=== PATIENT | male | born 1955 | race Caucasian/White ===

== ENCOUNTER 2016-07-12 00:42 | Day surgery (SDC) | payer OTHER ==
[~2016-07-12] VITALS: Ht 182.9 cm; Wt 87.5 kg
[2016-07-12] MEDS ORDERED: Sodium Chloride LOK Flush 10 mL Syringe IV PRN (06:00)
[2016-07-12] MEDS ORDERED: fentaNYL-PF 50 mCg/mL 2 mL Inj IVPUSH PRN (06:00)
[2016-07-12 11:40] VITALS: BP 134/74; PULSE 71; RESP 16; O2SAT 95
[2016-07-12] MEDS: 0.9% Sodium Chloride 1,000 ML IV SCH ×3 (11:46→12:46)
[2016-07-12 12:53] VITALS: BP 136/84; PULSE 64; RESP 14; O2SAT 94
[2016-07-12 13:02] VITALS: BP 109/70; PULSE 75; RESP 14; O2SAT 95
[2016-07-12 13:12] VITALS: BP 115/67; PULSE 70; RESP 14; O2SAT 95
[2016-07-12 13:22] VITALS: BP 142/76; PULSE 69; RESP 14; O2SAT 96
--- NOTE | 2016-07-13 07:20 | ENDO ---
[address] [address] ENDOSCOPY PROCEDURE PATIENT: MALLORY ANN : 1955 MR#: [id number] ADMIT: 07/12/2016 JOB ID: [id number] DATE: 07/12/2016 TYPE OF OPERATION: Colonoscopy with biopsy. PREOPERATIVE DIAGNOSIS(ES): Rectal bleeding. POSTOPERATIVE DIAGNOSIS(ES): Broad-based rectal mass was seen that appeared erythematous and hard on biopsy concerning for malignancy status post biopsy. ANESTHESIA: 1. Fentanyl 150 mcg. 2. Versed 7 mg IV administered. COMPLICATIONS: None. BLOOD LOSS: Minimal. DESCRIPTION OF PROCEDURE: After risks and benefits were explained to the patient, informed consent was obtained. After anesthesia administered, colonoscope was then inserted per rectum to the cecum. Mucosa carefully examined. Prep of the patient was excellent. After the procedure was done, the scope withdrawn and procedure terminated. FINDINGS: Upon inspection of the anus, no masses, hemorrhoids, ulcers or fissures that were seen. Throughout the entire examination, there was a large mass seen in the rectum just upon entry of the scope that was broad-based, erythematous and hard upon biopsy. Several biopsies were taken of this region concerning for malignancy. Retroflexion revealed the mass. No other masses or polyps were seen. IMPRESSIONS: A large rectal mass concerning for malignancy status post biopsy, most likely cause of rectal bleeding. RECOMMENDATIONS: 1. CT of chest, abdomen and pelvis with contrast. 2. General surgery consult. 3. Await biopsy results.
--- NOTE | 2016-07-15 10:41 | PATH ---
SURGICAL PATHOLOGY Attending Physician:Kevon Shen MD CASE STATUS: Signed Out PATIENT NAME: MALLORY NAN PID: [id number] : 1955 DATE COLLECTED:07/12/2016 20:42 SPECIMEN: Rectum, Biopsy CLINICAL HISTORY: 1). RECTAL BIOPSY FINAL DIAGNOSIS: 1.RECTAL BIOPSY: INVASIVE ADENOCARCINOMA, MODERATELY DIFFERENTIATED. ICD10 code C20 NOTE: As part of a routine quality control assistant, Dr. Nini Lan has also reviewed this case and agrees with the diagnosis. The results of this evaluation are telephoned to Dr. Kevon Shen at 0905 on 07/15/16. GROSS DESCRIPTION: The specimen is received in one formalin filled container labeled with the patient's name, sublabeled "rectal" and consists of multiple portions of tissue which aggregate to 0.4 x 0.4 x 0.2 CM. The specimen is entirely submitted in one cassette. 07/12/2016 [facility] MICRO DESCRIPTION: See diagnosis. ICD-9 CODES: CPT CODES: 1: 51570 Electronically Signed Out Ab Barba MD [facility] Pathology [facility] [address], [place] [address] Technical component performed at [facility], [address] [place] [address] Ave[address], [place], [address]
[2016-07-31] MEDS ORDERED: NO MEDS (13:01)
== END 2016-07-12 23:59 | disposition home or self-care (01) ==
LOC: END 00:42
PROVIDERS: ATTEND Internal Medicine Gastroenterology
DX: C20 Malignant neoplasm of rectum (principal); Z85.528 Personal history of other malignant neoplasm of kidney; F17.210 Nicotine dependence, cigarettes, uncomplicated
CPT/HCPCS: 45380; G0500; J7030

== ENCOUNTER → 2016-08-21 | Day surgery (SDC) | payer OTHER ==
[~2016-08-21] VITALS: Ht 182.9 cm; Wt 85.0 kg
[2016-08-21] VITALS (7 sets, daily range): BP systolic 125–144; BP diastolic 73–96; PULSE 44–68; RESP 12–17; O2SAT 94–100
[~2016-08-21] MED LIST: Bupivacaine-MPF 0.25%/EPI 30 mL Inj INFILTRATE ONE; Dexamethasone 4 mg/mL Inj IVPUSH PRN; Dexamethasone 4 mg/mL Inj ONE; EPHEDrine Sulfate 50 mg/mL Inj IVPUSH PRN; HYDROmorphone 1 mg/mL Inj IVPUSH PRN; LEVO750T39 PO; Lactated Ringer's 1,000 ML IV SCH; Lactated Ringer's 500 ML IV PRN; METR500T19 PO; MetoCLOpramide 5 mg/mL 2 mL Inj IVPUSH PRN; NO MEDS; OXYC5CAP4 PO; Ondansetron 2 mg/mL 2 mL Inj IVPUSH PRN; Ondansetron 2 mg/mL 2 mL Inj ONE; Phenylephrine 10,000 mCg/mL Inj IVPUSH PRN; Propofol 10,000 mCg/mL 20 mL Inj ONE; fentaNYL-PF 50 mCg/mL 2 mL Inj ONE; oxyCODONE-Acetamin 5-325 mg Tablet PO PRN
[2016-08-21] MEDS: Lactated Ringer's 1,000 ML IV SCH ×2 (15:03→16:09)
--- NOTE | 2016-08-21 15:50 | PCM.HPANE ---
Patient Data Date of Service: Aug 21, 2016 (5109) Surgeon Admitting Provider: Attending Provider:Angela Morelos MD Primary Care Physician:Bobby Ho MD Other Provider:Shantal Izaguirre Anesthesia Reason for Visit Perirectal Abscess, Rectal Fistula Ht/WT & BMI Height (Feet): 6 Height (Inches): 0.00 Weight (Kilograms): 85 Body Mass Index 25.00 Allergies Coded Allergies: No Known Drug Allergies (Verified Allergy, Unknown, 07/31/16) Past Anesthesia History Anesthesia History: Denies:: Abnormal Airway, Anesthesia Reactions, Difficult Intubation, Fam Anesthesia Reaction, Fam Malignant Hypertherm, Malignant Hyperthermia Diabetes History Hx Diabetes?: No MRSA MRSA: No Medications Home Meds Incl Beta Pily: No Reported Medications [No Meds] No Conflict Check 07/31/16 History History of ENT Problems?: No HEENT History: Denies:: Abnormal Airway Difficult Intubation Dysphagia Hearing Problem Sinus Problem Denture Type: None Teeth Condition: Within Normal Limits Hx of Heart Problems?: No Cardiovascular History: Denies:: Chest Pain Heart Murmur Hypertension Pacemaker Rheumatic Fever Thrombophlebitis Hx of Respiratory Problem?: No Respiratory History: Denies:: Asthma COPD Dyspnea Hemoptysis Tuberculosis Hx Neurologic Problems?: No Neurological History: Denies:: Alzheimer's Disease CVA Dementia Dizziness Headaches Seizures Hx of GI Problems?: Yes Hx of Problems?: Yes Genitourinary History: Denies:: HX of Hemodialysis Kidney Stones Urinary Tract Infection Other Pertinent History: prior hx of partial left nephrectomy- related to renal ca Male Hx: Denies:: Prostate Problems Skin History: Denies:: History Skin Disorders? Hx Musculoskeletal Problems?: No Musculoskeletal History: Denies:: Joint Replacement Musculoskeletal Trauma Hx of Psycho/Social Problems?: No Psycho Social History: Denies:: Anxiety Bipolar Disorder Hx Depression Hx Surgeries?: Yes (partial left nephrectomy) Hx Any Other Health Problems?: No Other History: Positive for:: Cancer (LEFT KIDNEY CANCER IN 2012) Hospitalization Denies:: Endocrine Disease Thyroid Disease Hx Diabetes: No Hx Alcohol Use: YesHx Substance Use: No Smoking Status: Never Smoker Have You Smoked inLast 12 mo: No Stop/Bang S-Snoring: Do You Snore Loudly: No T-Tired: feel tired, fatigued: No O-Obsered: Observed not breath: No P-Blood Pressure: treated: No B- Body Mass Index > 35 kg/m2: No A- Age over 50: Yes N- Neck Large Circumference: No G- Gender Male: Yes YASMINE Total Score: 2 YASMINE Risk Assessment: Low Risk, <3 Yes Risk Assessment Category Category 1A: Patient has history of documented sleep apnea, and HAS NOT received any narcotic, sedative or anesthesia administration during this stay. Category 1B: Patient has history of documented sleep apnea, and HAS received any narcotic , sedative or anesthesia administration during this stay Category 2: Patient has SUSPECTED Obstructive Sleep Apnea, and HAS received any narcotic , sedative or anesthesia administration during this stay. Category 3: Patient has SUSPECTED Obstructive Sleep Apnea and HAS NOT received narcotic, sedative or anesthesia administration during this stay. Category 4: Outpatient in Procedural Areas with known sleep apnea or who screen positive for High Risk via the STOP/BANG questionnaire. Exam Exam Vital Signs Vital Signs Date Time Temp Pulse Resp B/P Pulse Ox O2 Delivery O2 Flow Rate FiO2 08/21/16 15:04 36.8 62 16 131/94 98 Room Air General Appearance: Alert, Oriented X3, Cooperative HEENT/AIRWAY: MP 1 Lungs: Clear to Auscultation Heart: Exam Unremarkable Meds/Labs/Diagnostics Admission Meds Current Medications Lactated Ringer's (Lr) 1,000 ml @ 120 mls/hr Q8H20M IV Last administered on t 15:03; Start 08/21/16 at 05:00; Stop 08/21/16 at 13:19; Status DC Plan Impression Patient chart reviewed, patient interviewed and anesthestic plan with risks, benefits, and alternatives discussed, and informed consent obtained. NPO per Anesth. Guidelines: Yes ASA Physical Status: ASA2 Mod Systemic Disease Anesthetic Plan: GA Bene/Risks/Altern/Consents: Yes HP Complete Prior to Induction: Yes Deepak Menezes MD Aug 21, 2016 15:50
--- NOTE | 2016-08-21 17:01 | PCM.ANEP1 ---
Post Anesthesia PACU Phase 1 Assessment Vital Signs 36.8, 99%, 133/88, 76, 16 Vital Signs Date Time Temp Pulse Resp B/P Pulse Ox O2 Delivery O2 Flow Rate FiO2 08/21/16 15:04 36.8 62 16 131/94 98 Room Air Anesthetic Administered: GA Level of Alertness: Awake, talking MILLIGAN's with Equal Strength: Yes Pain: No Pain Scale Score: 0 Nausea or Vomiting: No CV Function & Hydration Stable: Yes Airway Device: NONE Lungs: Clear to Auscultation Dermatome Level: Full Sensation Summary Bit down on LMA at the end of the case and coughing with emergence but recovered well. No desaturations or sequelae PACU Phase 2 Assessment Complications: No Follow up Care: No Patient Instructions Provided: N/A Deepak Menezes MD Aug 21, 2016 17:01
[2016-08-21] MEDS: fentaNYL-PF 50 mCg/mL 2 mL Inj IVPUSH PRN ×2 (17:08→17:18)
--- NOTE | 2016-08-21 18:00 | OP ---
[address] [address] OPERATIVE REPORT PATIENT: MALLORY ANN : 1955 MR#: [id number] ADMIT: 08/21/2016 JOB ID: [id number] DATE OF SURGERY: 08/21/2016 PREOPERATIVE DIAGNOSIS(ES): Perirectal abscess in the setting of rectal cancer. POSTOPERATIVE DIAGNOSIS(ES): Perirectal abscess in the setting of rectal cancer. PROCEDURE PERFORMED: Examination under anesthesia, incision and drainage of perirectal abscess with non-cutting seton placement. SURGEON: Angela Morelos MD [employer] SUPERINTENDENT: Malcom Mills PA-C. The assistant professor of life sciences was required for retraction. HISTORY OF PRESENT ILLNESS: This is a 60-year-old man who presented with perirectal bleeding and was found to have a tumor which proved to be biopsy positive for adenocarcinoma, approximately 5 cm proximal to the anal verge. He underwent workup and was found to have a perirectal abscess on both MRI and PET scan. His tumor was staged as T3 and therefore neoadjuvant chemoradiation was indicated. On examination, he had a small amount of purulent discharge proximal to the dentate line at the exact location of a fistulous tract that had been seen on the MRI. Therefore, he was brought to the operating room for examination under anesthesia with probable seton placement so he could continue on with chemoradiation. FINDINGS: 1. A small abscess cavity at the 2 o'clock position, with 12 o'clock being posterior. 2. A non-cutting seton was placed to drain the abscess cavity. DESCRIPTION OF PROCEDURE: The patient brought to the operating room and placed in supine position. General anesthesia was induced. A warming blanket was placed. He was repositioned into high lithotomy. The operative field was prepped and draped in sterile fashion. A pause was performed to confirm the correct patient, procedure, and site. Examination under anesthesia and digital rectal examination were performed. The known cancer was present at 5 cm proximal to the dentate line. Detailed findings of this have been reported previously on my proctoscopic exam as an outpatient. The left perianal and perirectal region was carefully inspected. There was a small amount of purulent drainage at 2 o'clock, with anterior being 12 o'clock. This was located 2 cm proximal to the dentate line. Therefore, a tiny incision was made in the skin just 2 cm distal to the dentate line and the abscess cavity was carefully explored. A culture was sent. A lacrimal duct probe was used to connect the abscess cavity to the site of purulent drainage proximal of the dentate line. A silk suture was attached to a blue vessel loop, and the silk was attached to the lacrimal duct probe, which was brought back through the abscess cavity. The vessel loop was then brought through and cut to size and sutured to itself. The knot was secured with a silk tie. Local anesthesia was infiltrated in the subcutaneous tissues near the incision and drainage site. As noted above, cultures were sent of the abscess cavity site. Other findings included an external hemorrhoid at the right anterolateral position. The cancer was somewhat friable and had a small amount of bleeding after digital rectal examination. SPECIMENS: Abscess cavity fluid, sent for culture. ESTIMATED BLOOD LOSS: 5 mL. COMPLICATIONS: None.
== END | disposition home or self-care (01) ==
LOC: SAS 13:43
PROVIDERS: ATTEND Surgery
DX: K61.1 Rectal abscess (principal); C20 Malignant neoplasm of rectum; K64.4 Residual hemorrhoidal skin tags; Z92.3 Personal history of irradiation; Z92.21 Personal history of antineoplastic chemotherapy; F17.220 Nicotine dependence, chewing tobacco, uncomplicated
CPT/HCPCS: 46020; 87070; 87075; 87147; 87205; J1100; J1885; J2250; J2405; J3010; J7120